=== PATIENT | male | born 1935 | race Native Hawaiian/Other Pacific Islander ===

== ENCOUNTER 2016-04-15 06:33 | Observation (INO) | payer OTHER ==
[~2016-04-15] VITALS: Ht 165.1 cm; Wt 68.7 kg
[2016-04-15 06:34] VITALS: BP 158/77; TEMP 98.2
[2016-04-15 06:57] LABS: PLATELET COUNT 228 K/uL (142-355)
[2016-04-15 07:12] LABS: POTASSIUM 3.6 mmol/L (3.6-5.2); SODIUM 130 mmol/L (136-145)
[2016-04-15 07:22] LABS: PARTIAL THROMBOPLASTIN TIME 28.4 SECONDS (24.5-33.6)
[2016-04-15 09:26] VITALS: BP 154/85; TEMP 98.2; Ht 165.1 cm; Wt 68.7 kg
[2016-04-15 11:45] VITALS: BP 141/77; TEMP 97.9
[2016-04-15] MEDS ORDERED: CARAFATE1 GM PO (13:35)
[2016-04-15] MEDS ORDERED: CLARITIN10 MG PO (13:35)
[2016-04-15] MEDS ORDERED: TRAM50TA PO (13:35)
[2016-04-15] MEDS ORDERED: DIOVAN HCT160 MG/25 PO (13:35)
[2016-04-15] MEDS ORDERED: NITROSTAT0.4 MG SL (13:36)
[2016-04-15] MEDS ORDERED: PLAVIX75 MG PO (13:36)
[2016-04-15] MEDS ORDERED: MECLIZINE25 MG PO (13:36)
[2016-04-15] MEDS ORDERED: RANITIDINE 150150 MG PO (13:37)
[2016-04-15 15:57] VITALS: BP 143/77; TEMP 98.1
[2016-04-15 19:59] VITALS: BP 127/68; TEMP 98.2
[2016-04-16] VITALS: BP 113/70; TEMP 98.4
[2016-04-16 04:00] VITALS: BP 114/67; TEMP 98.2
[2016-04-16 06:27] LABS: POTASSIUM 3.9 mmol/L (3.6-5.2); SODIUM 134 mmol/L (136-145)
[2016-04-16 08:00] VITALS: BP 123/76; TEMP 98.2
[2016-04-16 12:00] VITALS: BP 153/86; TEMP 97.7
--- NOTE | 2016-04-16 13:25 | NUR ---
1325 pt left with son via wc. no distress or problems noted
== END 2016-04-16 13:23 | disposition home or self-care (01) ==
LOC: ED 06:33 → MED/SURG 07:46
PROVIDERS: Emergency Medicine
DX: R07.89 Other chest pain (principal); K57.92 Diverticulitis of intestine, part unspecified, without perforation or abscess without bleeding; I25.2 Old myocardial infarction; R10.32 Left lower quadrant pain
CPT/HCPCS: 36415; 80053; 81000; 82150; 82550; 83690; 83735; 84484; 85027; 85610; 85730; 86318; 93005; 96372; 99220; 99283; 99284; G0378; J1650

== ENCOUNTER 2016-04-16 19:55 | Emergency (ER) | payer OTHER ==
[~2016-04-16] VITALS: Ht 165.1 cm; Wt 68.0 kg
[~2016-04-16 19:55] MED LIST: CARAFATE1 GM PO; CLARITIN10 MG PO; DIOVAN HCT160 MG/25 PO; MECLIZINE25 MG PO; NITROSTAT0.4 MG SL; PLAVIX75 MG PO; RANITIDINE 150150 MG PO; TRAM50TA PO
[2016-04-16 20:39] LABS: PLATELET COUNT 256 K/uL (142-355)
[2016-04-16 22:23] VITALS: BP 129/82; TEMP 98.2
== END 2016-04-16 22:29 | disposition home or self-care (01) ==
LOC: ED 19:55
DX: K57.92 Diverticulitis of intestine, part unspecified, without perforation or abscess without bleeding (principal)
CPT/HCPCS: 36415; 81000; 82150; 83690; 85027; 86318; 99283

== ENCOUNTER → 2016-10-10 09:46 | Outpatient (CLI) | payer OTHER | END | disposition home or self-care (01) | LOC: AMB 09:46 | DX: Z04.1 Encounter for examination and observation following transport accident (principal) ==

== ENCOUNTER 2016-11-17 07:53 | Outpatient (CLI) | payer OTHER ==
[2016-11-17 08:46] LABS: PLATELET COUNT 280 K/uL (142-355)
[2016-11-17 09:04] LABS: POTASSIUM 4.6 mmol/L (3.6-5.2); SODIUM 132 mmol/L (136-145)
== END 2016-11-17 09:00 | disposition home or self-care (01) ==
LOC: LABW 07:53
PROVIDERS: Internal Medicine Cardiovascular Disease
DX: E78.4 Other hyperlipidemia (principal); Z79.899 Other long term (current) drug therapy; Z51.81 Encounter for therapeutic drug level monitoring
CPT/HCPCS: 36415; 80048; 80061; 80076; 85027

== ENCOUNTER 2016-11-23 09:20 | Outpatient (CLI) | payer OTHER | END 2016-11-23 10:30 | disposition home or self-care (01) | LOC: US 09:20 | DX: I65.29 Occlusion and stenosis of unspecified carotid artery (principal) ==

== ENCOUNTER 2016-12-26 13:29 | Emergency (ER) | payer OTHER ==
[~2016-12-26] VITALS: Ht 165.1 cm; Wt 63.5 kg
[2016-12-26 13:40] VITALS: TEMP 97.9
[2016-12-26 14:36] VITALS: BP 102/86
== END 2016-12-26 14:39 | disposition home or self-care (01) ==
LOC: ED 13:29
DX: S30.0XXA Contusion of lower back and pelvis, initial encounter (principal); S70.02XA Contusion of left hip, initial encounter; S70.01XA Contusion of right hip, initial encounter; M47.896 Other spondylosis, lumbar region; Z87.81 Personal history of (healed) traumatic fracture; W01.0XXA Fall on same level from slipping, tripping and stumbling without subsequent striking against object, initial encounter; Y92.098 Other place in other non-institutional residence as the place of occurrence of the external cause
CPT/HCPCS: 99283; J1885

== ENCOUNTER 2017-01-04 11:16 | Inpatient (IN) | payer OTHER ==
[~2017-01-04] VITALS: Ht 165.1 cm; Wt 65.8 kg
[2017-01-04] VITALS (7 sets, daily range): BP systolic 121–152; BP diastolic 68–98; TEMP 97.7–98.1; Ht 165.1 cm; Wt 65.8 kg
[2017-01-05] VITALS (7 sets, daily range): BP systolic 110–141; BP diastolic 64–81; TEMP 98–99.3
[2017-01-05 06:01] LABS: POTASSIUM 3.2 mmol/L (3.6-5.2); SODIUM 131 mmol/L (136-145)
[2017-01-05 06:37] LABS: PLATELET COUNT 300 K/uL (142-355)
[2017-01-05] MEDS ORDERED: DIOVAN HC1 PO (09:06)
[2017-01-05] MEDS ORDERED: MIRALAX3350 N1 PO (09:06)
[2017-01-05] MEDS ORDERED: SIMV40TA57 (09:07)
[2017-01-05] MEDS ORDERED: METO50TA27 PO (09:08)
[2017-01-06 04:00] VITALS: BP 106/61; BP 110/60; TEMP 98.3; TEMP 98.7
[2017-01-06 08:00] VITALS: BP 127/65; TEMP 99.1
[2017-01-06 12:00] VITALS: BP 154/81; TEMP 98
[2017-01-06 16:00] VITALS: BP 157/78; TEMP 98
[2017-01-06 20:00] VITALS: BP 152/78; TEMP 97.9
[2017-01-07] VITALS: BP 108/60; TEMP 98.1
[2017-01-07 04:00] VITALS: BP 127/64; TEMP 98.4
[2017-01-07 08:00] VITALS: BP 118/66; TEMP 98.2
[2017-01-07 12:00] VITALS: BP 117/62; TEMP 98.3
[2017-01-07 16:00] VITALS: BP 130/70; TEMP 98.4
[2017-01-07 20:00] VITALS: BP 133/72; TEMP 99.1
[2017-01-08] VITALS: BP 133/61; TEMP 98.6
[2017-01-08 04:00] VITALS: BP 112/60; TEMP 98.1
[2017-01-08 08:00] VITALS: BP 123/54; TEMP 98.2
[2017-01-08 12:00] VITALS: BP 112/54; TEMP 97.7
[2017-01-08 16:00] VITALS: BP 130/68; TEMP 98.5
[2017-01-08 20:10] VITALS: BP 133/69; TEMP 98.9
[2017-01-09] VITALS: BP 138/60; TEMP 99
[2017-01-09 04:00] VITALS: BP 121/63; TEMP 98.1
[2017-01-09 07:58] VITALS: BP 144/73; TEMP 97.8
[2017-01-09 12:00] VITALS: BP 118/67; TEMP 97.8
[2017-01-09 16:00] VITALS: BP 142/78; TEMP 98.3
[2017-01-09 20:00] VITALS: BP 143/65; TEMP 97.7
[2017-01-10] VITALS: BP 130/66; TEMP 98.4
[2017-01-10 04:00] VITALS: BP 129/62; TEMP 97.9
[2017-01-10 08:00] VITALS: BP 119/58; TEMP 98.1
[2017-01-10 12:00] VITALS: BP 124/82; TEMP 98.8
== END 2017-01-10 14:16 | disposition short-term general hospital (02) | DRG 552 ==
LOC: ED 11:16 → MED/SURG 14:35
PROVIDERS: Internal Medicine; ADMIT Family Medicine
DX: S32.028A Other fracture of second lumbar vertebra, initial encounter for closed fracture (principal); S22.088A Other fracture of T11-T12 vertebra, initial encounter for closed fracture; W19.XXXA Unspecified fall, initial encounter; Y93.89 Activity, other specified; Y92.128 Other place in nursing home as the place of occurrence of the external cause; I10 Essential (primary) hypertension; K21.9 Gastro-esophageal reflux disease without esophagitis; E78.00 Pure hypercholesterolemia, unspecified; Z86.73 Personal history of transient ischemic attack (TIA), and cerebral infarction without residual deficits; I25.10 Atherosclerotic heart disease of native coronary artery without angina pectoris; M15.8 Other polyosteoarthritis
CPT/HCPCS: 36415; 80053; 81000; 83735; 85027; 96365; 96366; 96375; 99284; J1885; J2930

== ENCOUNTER 2017-01-12 16:12 | Inpatient (IN) | payer OTHER ==
[~2017-01-12] VITALS: Ht 165.1 cm; Wt 61.7 kg
[~2017-01-12 16:12] MED LIST changes: +DIOVAN HC1 PO; +METO50TA27 PO; +MIRALAX3350 N1 PO; +SIMV40TA57
[2017-01-12 19:47] VITALS: BP 144/83; TEMP 98.4; Ht 165.1 cm; Wt 61.7 kg
[2017-01-13 08:00] VITALS: BP 104/79; TEMP 98
[2017-01-13 20:06] VITALS: BP 96/50; TEMP 98.7
[2017-01-13 20:07] VITALS: BP 96/50; TEMP 98.7
[2017-01-14 07:30] VITALS: BP 108/63; TEMP 98.1
[2017-01-14 20:00] VITALS: BP 120/72; TEMP 97.8
[2017-01-15 08:00] VITALS: BP 139/82; TEMP 98.6
[2017-01-15 20:00] VITALS: BP 102/65; TEMP 98.2
[2017-01-16 08:00] VITALS: BP 130/67; TEMP 98.4
[2017-01-16 22:00] VITALS: BP 127/80; TEMP 98.6
[2017-01-17 08:00] VITALS: BP 108/62; TEMP 98.6
[2017-01-17 20:00] VITALS: BP 116/62; TEMP 98.8
[2017-01-18 04:43] LABS: PLATELET COUNT 255 K/uL (142-355)
[2017-01-18 05:34] LABS: POTASSIUM 3.5 mmol/L (3.6-5.2); SODIUM 130 mmol/L (136-145)
[2017-01-18 08:00] VITALS: BP 103/72; TEMP 98.3
[2017-01-18 20:24] VITALS: BP 104/59; TEMP 98.5
[2017-01-19 08:00] VITALS: BP 119/74; TEMP 97.6
[2017-01-19 20:00] VITALS: BP 114/73; TEMP 98.4
[2017-01-20 08:00] VITALS: BP 125/72; TEMP 98
[2017-01-20 20:00] VITALS: BP 109/66; TEMP 98.6
[2017-01-21 08:00] VITALS: BP 100/66; TEMP 98.3
[2017-01-21 20:00] VITALS: BP 118/76; TEMP 98.2
[2017-01-22 08:00] VITALS: BP 116/77; TEMP 98.2
[2017-01-22 19:42] VITALS: BP 108/71; TEMP 98.7
[2017-01-23 08:00] VITALS: BP 132/76; TEMP 98
[2017-01-23 19:32] VITALS: BP 117/78; TEMP 98.1
[2017-01-24 08:00] VITALS: BP 115/70; TEMP 97.8
[2017-01-25] MEDS ORDERED: TRAM50TA PO (14:44)
[2017-01-25] MEDS ORDERED: LODRANE D1 CAP OR (14:46)
[2017-01-25] MEDS ORDERED: PREDNISONE5 M1 OR (14:48)
== END 2017-01-24 12:06 | disposition home health service (06) | DRG 556 ==
LOC: MED/SURG 16:12
PROVIDERS: ADMIT Internal Medicine
DX: M62.81 Muscle weakness (generalized) (principal); Z47.89 Encounter for other orthopedic aftercare; R26.81 Unsteadiness on feet; I10 Essential (primary) hypertension; I25.10 Atherosclerotic heart disease of native coronary artery without angina pectoris; K21.9 Gastro-esophageal reflux disease without esophagitis
CPT/HCPCS: 80053; 85027

== ENCOUNTER 2017-01-25 14:20 | Emergency (ER) | payer OTHER ==
[~2017-01-25] VITALS: Ht 165.1 cm; Wt 63.5 kg
[2017-01-25 14:29] VITALS: TEMP 97.7
[2017-01-25] MEDS ORDERED: TRAM50TA PO (14:44)
[2017-01-25] MEDS ORDERED: LODRANE D1 CAP OR (14:46)
[2017-01-25] MEDS ORDERED: PREDNISONE5 M1 OR (14:48)
[2017-01-25 17:04] VITALS: BP 116/68
== END 2017-01-25 17:07 | disposition home or self-care (01) ==
LOC: ED 14:20
DX: M25.552 Pain in left hip (principal); M25.551 Pain in right hip; M16.0 Bilateral primary osteoarthritis of hip
CPT/HCPCS: 99282

== ENCOUNTER 2017-02-22 08:07 | Emergency (ER) | payer OTHER ==
[~2017-02-22] VITALS: Ht 165.1 cm; Wt 49.9 kg
[~2017-02-22 08:07] MED LIST changes: +LODRANE D1 CAP OR; +PREDNISONE5 M1 OR
[2017-02-22 09:15] VITALS: TEMP 97.9
[2017-02-22 10:00] VITALS: BP 142/78
== END 2017-02-22 10:05 | disposition home or self-care (01) ==
LOC: ED 08:07
DX: S29.012A Strain of muscle and tendon of back wall of thorax, initial encounter (principal); G89.29 Other chronic pain; W06.XXXA Fall from bed, initial encounter; Y93.89 Activity, other specified; Y92.098 Other place in other non-institutional residence as the place of occurrence of the external cause
CPT/HCPCS: 96372; 99283; J1020; J1100

== ENCOUNTER 2017-02-23 10:13 | Emergency (ER) | payer OTHER ==
[~2017-02-23] VITALS: Ht 165.1 cm; Wt 49.9 kg
[2017-02-23 10:49] LABS: PLATELET COUNT 316 K/uL (142-355)
[2017-02-23 10:56] LABS: POTASSIUM 3.9 mmol/L (3.6-5.2)
[2017-02-23 14:12] VITALS: BP 124/71; TEMP 97.6
== END 2017-02-23 14:12 | disposition home or self-care (01) ==
LOC: ED 10:13
PROVIDERS: Emergency Medicine
DX: F03.90 Unspecified dementia, unspecified severity, without behavioral disturbance, psychotic disturbance, mood disturbance, and anxiety (principal)
CPT/HCPCS: 36415; 80053; 81000; 85027; 99283

== ENCOUNTER 2017-03-30 08:07 | Outpatient (CLI) | payer OTHER | END 2017-03-30 09:10 | disposition home or self-care (01) | LOC: MRI 08:07 | DX: R41.82 Altered mental status, unspecified (principal) ==

== ENCOUNTER 2017-04-01 16:12 | Emergency (ER) | payer OTHER ==
[~2017-04-01] VITALS: Ht 162.6 cm; Wt 49.9 kg
[2017-04-01 18:03] LABS: PLATELET COUNT 296 K/uL (142-355)
[2017-04-01 18:21] LABS: PARTIAL THROMBOPLASTIN TIME 27.4 SECONDS (24.5-33.6)
[2017-04-01 18:30] LABS: POTASSIUM 3.2 mmol/L (3.6-5.2); SODIUM 133 mmol/L (136-145)
[2017-04-01 20:20] VITALS: TEMP 98.4
[2017-04-01 20:45] VITALS: BP 156/97
== END 2017-04-01 21:00 | disposition short-term general hospital (02) ==
LOC: ED 16:12
PROVIDERS: Specialist
DX: R07.89 Other chest pain (principal); R00.0 Tachycardia, unspecified
CPT/HCPCS: 36415; 80053; 82550; 84484; 85027; 85610; 85730; 93005; 96372; 96374; 96375; 99284; J1644; J2270; J2405

== ENCOUNTER 2017-04-01 20:43 | Outpatient (CLI) | payer OTHER | END 2017-04-01 21:52 | disposition short-term general hospital (02) | LOC: AMB 20:43 | DX: R07.89 Other chest pain (principal); R00.0 Tachycardia, unspecified | CPT/HCPCS: A0425; A0427 ==

== ENCOUNTER 2017-04-21 01:40 | Observation (INO) | payer OTHER ==
[~2017-04-21] VITALS: Ht 165.1 cm; Wt 61.3 kg
[2017-04-21 02:03] VITALS: BP 146/76; TEMP 97.8
[2017-04-21 02:35] LABS: PLATELET COUNT 257 K/uL (142-355)
[2017-04-21 02:46] LABS: POTASSIUM 3.8 mmol/L (3.6-5.2); SODIUM 130 mmol/L (136-145)
[2017-04-21 03:17] LABS: PARTIAL THROMBOPLASTIN TIME 27.9 SECONDS (24.5-33.6)
[2017-04-21 04:50] VITALS: BP 148/73; TEMP 97.4; Ht 165.1 cm; Wt 61.3 kg
--- NOTE | 2017-04-21 05:08 | NUR ---
0420 ARRIVED TO ROOM VIA W/C FROM ER, AWAKE, ALERT & ORIENTED. SON AT BEDSIDE & ANSWERED QUESTIONS, ORIENTED PT & SON TO ROOM, BED ALARM SET. TELEMETRY IN PLACE & PT INSTRUCTED NOT TO GET OOB WITHOUT ASSISTANCE.
[2017-04-21 08:00] VITALS: BP 134/68; TEMP 98
[2017-04-21 12:00] VITALS: BP 160/90; TEMP 98.3
[2017-04-21 16:00] VITALS: BP 129/71; TEMP 99.4
[2017-04-21 20:00] VITALS: BP 144/87; TEMP 98.3
[2017-04-22] VITALS: BP 109/67; TEMP 98.5
[2017-04-22 04:00] VITALS: BP 134/79; TEMP 98.7
[2017-04-22 07:21] LABS: PLATELET COUNT 257 K/uL (142-355)
[2017-04-22 07:55] LABS: POTASSIUM 3.8 mmol/L (3.6-5.2); SODIUM 132 mmol/L (136-145)
[2017-04-22 08:00] VITALS: BP 137/79; TEMP 98.9
--- NOTE | 2017-04-22 12:25 | NUR ---
1230 DISCHARGE INSTRUCTIONS GIVEN AND EXPLAINED TO PT. PT TO FOLLOW UP WITH DR SCHAFFER . INCREASE SODIUM INTACT. WILL SPEAK TO SON WHEN HE ARRIVES TO TAKE PT HOME
--- NOTE | 2017-04-22 12:27 | NUR ---
9012 SON HERE TO TAKE PT HOME EXPLAINED TO SON TO FOLLOW UP WITH DR SCHAFFER. BOTHJ VERBALIZED UNDERSTANDING
--- NOTE | 2017-04-24 16:30 | NUR ---
PATIENT WAS EXPOSED TO A STAFF MEMBER ON Sunday04-21-17 THAT TESTED POSITIVE FOR INFLUENZA A ON SUNDAY. I NOTIFIED THE PATIENT AND HIS GRANDDAUGHTER, ANUP. I CALLED IN RX FOR TAMIFLU 75 MG PO DAILY X 7 DAYS. THIS IS FOR PROPHALASIS. I ADVISED ANUP TO HAVE HIM START MEDICATION TODAY. SHE EXPRESSED UNDERSTANDING. PATIENT'S GFR IS >60.
== END 2017-04-22 12:35 | disposition home or self-care (01) ==
LOC: ED 01:40 → MED/SURG 03:34
DX: R07.89 Other chest pain (principal); I25.2 Old myocardial infarction
CPT/HCPCS: 36415; 36591; 80053; 82550; 82553; 84484; 85027; 85610; 85730; 93005; 94760; 96365; 96366; 96374; 99220; 99284; G0378; J1650; J2270

== ENCOUNTER 2017-05-07 10:45 | Emergency (ER) | payer OTHER ==
[~2017-05-07] VITALS: Ht 165.1 cm; Wt 63.5 kg
[2017-05-07 11:17] LABS: PLATELET COUNT 268 K/uL (142-355)
[2017-05-07 11:23] LABS: POTASSIUM 3.2 mmol/L (3.6-5.2)
[2017-05-07 13:05] VITALS: BP 115/62; TEMP 97.7
== END 2017-05-07 13:05 | disposition home or self-care (01) ==
LOC: ED 10:45
PROVIDERS: Family Medicine
DX: R07.89 Other chest pain (principal); R06.02 Shortness of breath
CPT/HCPCS: 80053; 82550; 83880; 84484; 85027; 93005; 99284

== ENCOUNTER 2019-01-06 11:36 | Outpatient (CLI) | payer OTHER | END 2019-01-06 11:49 | disposition short-term general hospital (02) | LOC: AMB 11:36 | DX: R07.89 Other chest pain (principal); I10 Essential (primary) hypertension | CPT/HCPCS: A0425; A0427 ==

== ENCOUNTER 2019-01-06 11:50 | Inpatient (IN) | payer OTHER ==
[~2019-01-06] VITALS: Ht 165.1 cm; Wt 62.9 kg
[2019-01-06] VITALS: BP 135/69; TEMP 97.7
[2019-01-06 11:50] VITALS: BP 98/62; TEMP 97.7
[2019-01-06 12:36] LABS: PLATELET COUNT 376 K/uL (142-355)
[2019-01-06 12:53] LABS: POTASSIUM 3.5 mmol/L (3.6-5.2)
[2019-01-06 16:00] VITALS: BP 135/72; TEMP 97.5
[2019-01-06 17:30] VITALS: BP 135/72; TEMP 97.5
[2019-01-06 18:00] VITALS: BP 135/72; TEMP 97.5
[2019-01-06 20:00] VITALS: BP 113/58; TEMP 98
[2019-01-07 03:29] LABS: PLATELET COUNT 227 K/uL (142-355)
[2019-01-07 03:43] LABS: POTASSIUM 2.9 mmol/L (3.6-5.2)
[2019-01-07 04:00] VITALS: BP 177/63; TEMP 97.6
[2019-01-07 08:00] VITALS: BP 124/70; TEMP 97.8
[2019-01-07 12:00] VITALS: BP 126/74; TEMP 98.3
== END 2019-01-07 16:20 | disposition short-term general hospital (02) | DRG 280 ==
LOC: ED 12:01 → MED/SURG 13:20
PROVIDERS: Internal Medicine; ADMIT Emergency Medicine
DX: I21.29 ST elevation (STEMI) myocardial infarction involving other sites (principal); A41.89 Other specified sepsis; J18.8 Other pneumonia, unspecified organism; I25.10 Atherosclerotic heart disease of native coronary artery without angina pectoris; E83.42 Hypomagnesemia; I25.2 Old myocardial infarction; E87.6 Hypokalemia; Z86.73 Personal history of transient ischemic attack (TIA), and cerebral infarction without residual deficits
CPT/HCPCS: 80053; 82150; 82550; 83036; 83605; 83690; 83735; 83880; 84484; 85027; 87040; 93005; 94640; 94664; 94760; 96360; 96365; 96366; 99284; J0456; J1956; J3475

== ENCOUNTER 2019-01-07 16:25 | Outpatient (CLI) | payer OTHER | END 2019-01-07 17:42 | disposition short-term general hospital (02) | LOC: AMB 16:25 | DX: I21.29 ST elevation (STEMI) myocardial infarction involving other sites (principal); A41.89 Other specified sepsis | CPT/HCPCS: A0425; A0429 ==

== ENCOUNTER 2019-04-20 10:53 | Observation (INO) | payer OTHER ==
[~2019-04-20] VITALS: Ht 165.1 cm; Wt 59.2 kg
[2019-04-20 10:53] VITALS: BP 164/79; TEMP 97.9
[2019-04-20 11:15] LABS: PLATELET COUNT 251 K/uL (142-355)
[2019-04-20 11:25] LABS: POTASSIUM 3.7 mmol/L (3.6-5.2); SODIUM 134 mmol/L (136-145)
[2019-04-20 11:42] VITALS: BP 125/71
[2019-04-20 11:42] LABS: PARTIAL THROMBOPLASTIN TIME 28.7 SECONDS (24.5-33.6)
[2019-04-20 12:19] VITALS: BP 129/81
[2019-04-20 16:00] VITALS: BP 153/81; TEMP 98.2
[2019-04-20 18:26] VITALS: BP 151/73; TEMP 98.9; Ht 165.1 cm; Wt 59.2 kg
[2019-04-20 20:00] VITALS: BP 135/88; TEMP 99.1
[2019-04-21] VITALS: BP 143/99; TEMP 98.6
[2019-04-21 03:54] VITALS: BP 159/78; TEMP 97.8
[2019-04-21 08:00] VITALS: BP 152/80; TEMP 97.9
[2019-04-21 12:00] VITALS: BP 151/84; TEMP 97.6
== END 2019-04-21 12:10 | disposition home or self-care (01) ==
LOC: ED 10:53 → MED/SURG 12:00
PROVIDERS: ADMIT Hospitalist
DX: R07.89 Other chest pain (principal); R06.02 Shortness of breath; I25.10 Atherosclerotic heart disease of native coronary artery without angina pectoris; I25.2 Old myocardial infarction; Z86.73 Personal history of transient ischemic attack (TIA), and cerebral infarction without residual deficits
CPT/HCPCS: 36415; 80053; 82550; 83880; 84484; 85027; 85379; 85610; 85730; 93005; 96374; 99220; 99284; G0378; J1650; J1885; J2270

== ENCOUNTER 2019-10-27 10:46 | Emergency (ER) | payer OTHER ==
[~2019-10-27] VITALS: Ht 165.1 cm; Wt 59.0 kg
[2019-10-27 11:10] VITALS: BP 161/88; TEMP 98
[2019-10-27 11:48] LABS: PLATELET COUNT 207 K/uL (142-355)
[2019-10-27 11:54] LABS: POTASSIUM 2.7 mmol/L (3.6-5.2)
[2019-10-27] MEDS ORDERED: TYLENOL325 MG PO (15:39)
[2019-10-27] MEDS ORDERED: TUMS500 MG PO (15:40)
== END 2019-10-27 13:55 | disposition other institution (70) ==
LOC: ED 10:46
PROVIDERS: Family Medicine
DX: Z00.8 Encounter for other general examination (principal); F91.8 Other conduct disorders; Z79.899 Other long term (current) drug therapy; Z11.59 Encounter for screening for other viral diseases
CPT/HCPCS: 80053; 80307; 80320; 80329; 81000; 85027; 87635; 93005; 99285; G2023; U00003

== ENCOUNTER 2019-12-04 18:57 | Outpatient (CLI) | payer OTHER ==
[~2019-12-04 18:57] MED LIST changes: +CHOL100034 PO; +CLOP75TA2 PO; +CYAN10009 IM; +ESCI10TA PO; +RANI150T78 PO; +RISP0.25 PO; +SIMV40TA57 PO; +TUMS500 MG PO; +TYLENOL325 MG PO
== END 2019-12-04 21:14 | disposition home or self-care (01) ==
LOC: LAB 18:57
DX: I10 Essential (primary) hypertension (principal); Z79.899 Other long term (current) drug therapy
CPT/HCPCS: 83036; 84153

== ENCOUNTER 2020-06-30 14:56 | Inpatient (IN) | payer OTHER | END 2020-07-15 12:22 | disposition still patient (30) | LOC: PAVC 14:56 | PROVIDERS: ADMIT Internal Medicine; ATTEND Internal Medicine ==

== ENCOUNTER 2020-07-01 08:44 | Outpatient (CLI) | payer OTHER ==
[2020-07-01 10:02] LABS: PLATELET COUNT 190 K/uL (142-355)
[2020-07-01 10:41] LABS: POTASSIUM 3.2 mmol/L (3.6-5.2)
== END 2020-07-01 21:47 | disposition home or self-care (01) ==
LOC: LAB 08:44
PROVIDERS: ATTEND Internal Medicine
DX: G30.1 Alzheimer's disease with late onset (principal); Z79.899 Other long term (current) drug therapy; R79.89 Other specified abnormal findings of blood chemistry
CPT/HCPCS: 80053; 80061; 82306; 82607; 82728; 83036; 83540; 84153; 84443; 85027; 87081

== ENCOUNTER 2020-07-15 13:46 | Inpatient (IN) | payer OTHER | END 2020-08-14 11:25 | disposition still patient (30) | LOC: PAVC 13:46 | PROVIDERS: ADMIT Internal Medicine; ATTEND Internal Medicine ==

== ENCOUNTER 2020-07-29 14:40 | Outpatient (CLI) | payer OTHER | END 2020-07-29 22:02 | disposition home or self-care (01) | LOC: INF 14:40 | PROVIDERS: ATTEND Internal Medicine | DX: Z23 Encounter for immunization (principal) | CPT/HCPCS: 96372 ==

== ENCOUNTER 2020-08-14 11:43 | Inpatient (IN) | payer OTHER | END 2020-09-14 15:44 | disposition still patient (30) | LOC: PAVC 11:43 | PROVIDERS: ADMIT Internal Medicine; ATTEND Internal Medicine ==

== ENCOUNTER 2020-08-19 08:31 | Outpatient (CLI) | payer OTHER | END 2020-08-19 20:24 | disposition home or self-care (01) | LOC: INF 08:31 | PROVIDERS: ATTEND Internal Medicine | DX: Z23 Encounter for immunization (principal) | CPT/HCPCS: 96372 ==

== ENCOUNTER 2020-09-01 08:42 | Outpatient (CLI) | payer OTHER | END 2020-09-01 21:27 | disposition home or self-care (01) | LOC: LAB 08:42 | PROVIDERS: ATTEND Internal Medicine | DX: D51.8 Other vitamin B12 deficiency anemias (principal) | CPT/HCPCS: 82607 ==

== ENCOUNTER 2020-09-14 16:42 | Inpatient (IN) | payer OTHER | END 2020-10-14 08:00 | disposition still patient (30) | LOC: PAVC 16:42 | PROVIDERS: ADMIT Internal Medicine; ATTEND Internal Medicine ==

== ENCOUNTER 2020-10-14 09:00 | Inpatient (IN) | payer OTHER | END 2020-11-14 08:00 | disposition still patient (30) | LOC: PAVC 09:00 | PROVIDERS: ADMIT Internal Medicine; ATTEND Internal Medicine ==

== ENCOUNTER 2020-11-14 09:00 | Inpatient (IN) | payer OTHER | END 2020-12-15 13:50 | disposition still patient (30) | LOC: PAVC 09:00 | PROVIDERS: ADMIT Internal Medicine; ATTEND Internal Medicine ==

== ENCOUNTER 2020-11-15 09:02 | Outpatient (CLI) | payer OTHER | END 2020-11-15 22:37 | disposition home or self-care (01) | LOC: LAB 09:02 | PROVIDERS: ATTEND Internal Medicine | DX: K21.9 Gastro-esophageal reflux disease without esophagitis (principal) | CPT/HCPCS: 82565; 84520 ==

== ENCOUNTER 2020-11-16 10:42 | Outpatient (CLI) | payer OTHER | END 2020-11-16 19:20 | disposition home or self-care (01) | LOC: CT 10:42 | PROVIDERS: ATTEND Internal Medicine | DX: M50.123 Cervical disc disorder at C6-C7 level with radiculopathy (principal); M25.78 Osteophyte, vertebrae | CPT/HCPCS: Q9963 ==

== ENCOUNTER 2020-11-18 09:59 | Outpatient (CLI) | payer OTHER | END 2020-11-18 20:26 | disposition home or self-care (01) | LOC: US 09:59 | PROVIDERS: ATTEND Internal Medicine | DX: I65.23 Occlusion and stenosis of bilateral carotid arteries (principal) ==

== ENCOUNTER 2020-11-22 07:53 | Outpatient (CLI) | payer OTHER | END 2020-11-22 21:41 | disposition home or self-care (01) | LOC: CT 07:53 | PROVIDERS: ATTEND Internal Medicine | DX: I65.23 Occlusion and stenosis of bilateral carotid arteries (principal) | CPT/HCPCS: Q9963 ==

== ENCOUNTER 2020-12-15 04:51 | Outpatient (CLI) | payer OTHER ==
[2020-12-15 05:32] LABS: PLATELET COUNT 211 K/uL (142-355)
[2020-12-15 05:58] LABS: POTASSIUM 4.1 mmol/L (3.6-5.2)
== END 2020-12-15 23:00 | disposition home or self-care (01) ==
LOC: LAB 04:51
PROVIDERS: ATTEND Internal Medicine
DX: D51.8 Other vitamin B12 deficiency anemias (principal); E78.49 Other hyperlipidemia
CPT/HCPCS: 80053; 80061; 82306; 85027

== ENCOUNTER 2020-12-15 14:06 | Inpatient (IN) | payer OTHER | END 2021-01-14 09:39 | disposition still patient (30) | LOC: PAVC 14:06 | PROVIDERS: ADMIT Internal Medicine; ATTEND Internal Medicine ==

== ENCOUNTER 2020-12-17 11:20 | Emergency (ER) | payer OTHER ==
[~2020-12-17] VITALS: Ht 160 cm; Wt 61.9 kg
[2020-12-17 11:58] LABS: PLATELET COUNT 204 K/uL (142-355)
[2020-12-17 12:06] LABS: SODIUM 132 mmol/L (136-145)
[2020-12-17 16:00] VITALS: BP 105/72
== END 2020-12-17 16:23 ==
LOC: ED 11:20
PROVIDERS: Emergency Medicine Emergency Medical Services
DX: E87.1 Hypo-osmolality and hyponatremia (principal); Z20.822 Contact with and (suspected) exposure to COVID-19
CPT/HCPCS: 36415; 80053; 81000; 84484; 85027; 87635; 96360; 96361; 99284; U0003

== ENCOUNTER 2020-12-31 09:56 | Outpatient (CLI) | payer OTHER | END 2020-12-31 19:18 | disposition home or self-care (01) | LOC: RESP 09:56 | PROVIDERS: ATTEND Internal Medicine | DX: I25.2 Old myocardial infarction (principal) | CPT/HCPCS: 93005 ==

== ENCOUNTER 2021-03-07 07:15 | Outpatient (CLI) | payer OTHER | END 2021-03-07 19:32 | disposition home or self-care (01) | LOC: INF 07:15 → LAB 07:15 | PROVIDERS: ATTEND Internal Medicine | DX: D51.8 Other vitamin B12 deficiency anemias (principal) | CPT/HCPCS: 82607 ==

== ENCOUNTER 2021-03-16 12:42 | Inpatient (IN) | payer OTHER | END 2021-04-16 09:08 | disposition still patient (30) | LOC: PAVC 12:42 | PROVIDERS: ADMIT Internal Medicine; ATTEND Internal Medicine ==

== ENCOUNTER 2021-04-16 09:31 | Inpatient (IN) | payer OTHER | END 2021-05-17 08:58 | disposition still patient (30) | LOC: PAVC 09:31 | PROVIDERS: ADMIT Internal Medicine; ATTEND Internal Medicine ==

== ENCOUNTER 2021-05-17 07:44 | Outpatient (CLI) | payer OTHER ==
[2021-05-17 08:51] LABS: PLATELET COUNT 205 K/uL (142-355)
[2021-05-17 09:12] LABS: POTASSIUM 4.3 mmol/L (3.6-5.2)
== END 2021-05-17 19:22 | disposition home or self-care (01) ==
LOC: LAB 07:44
PROVIDERS: ATTEND Internal Medicine
DX: E55.9 Vitamin D deficiency, unspecified (principal); E78.49 Other hyperlipidemia
CPT/HCPCS: 80053; 80061; 82306; 82607; 85027

== ENCOUNTER 2021-05-17 13:09 | Inpatient (IN) | payer OTHER | END 2021-06-14 09:09 | disposition still patient (30) | LOC: PAVC 13:09 | PROVIDERS: ADMIT Internal Medicine; ATTEND Internal Medicine ==

== ENCOUNTER 2021-06-14 14:10 | Inpatient (IN) | payer OTHER | END 2021-07-15 14:14 | disposition still patient (30) | LOC: PAVC 14:10 | PROVIDERS: ADMIT Internal Medicine; ATTEND Internal Medicine ==

== ENCOUNTER 2021-07-15 15:26 | Inpatient (IN) | payer OTHER | END 2021-08-14 10:39 | disposition still patient (30) | LOC: PAVC 15:26 | PROVIDERS: ADMIT Internal Medicine; ATTEND Internal Medicine ==

== ENCOUNTER 2021-08-14 02:31 | Inpatient (IN) | payer OTHER | END 2021-09-14 10:00 | disposition still patient (30) | LOC: PAVC 02:31 | PROVIDERS: ADMIT Internal Medicine; ATTEND Internal Medicine ==

== ENCOUNTER 2021-09-14 16:08 | Inpatient (IN) | payer OTHER | END 2021-10-14 09:16 | disposition still patient (30) | LOC: PAVC 16:08 | PROVIDERS: ADMIT Internal Medicine; ATTEND Internal Medicine ==

== ENCOUNTER 2021-10-14 13:03 | Inpatient (IN) | payer OTHER | END 2021-11-14 09:10 | disposition still patient (30) | LOC: PAVC 13:03 | PROVIDERS: ADMIT Internal Medicine; ATTEND Internal Medicine ==

== ENCOUNTER 2021-11-14 08:08 | Outpatient (CLI) | payer OTHER ==
[2021-11-14 08:54] LABS: PLATELET COUNT 203 K/uL (142-355)
[2021-11-14 09:01] LABS: POTASSIUM 4.3 mmol/L (3.6-5.2)
== END 2021-11-14 18:55 | disposition home or self-care (01) ==
LOC: LAB 08:08
PROVIDERS: ATTEND Internal Medicine
DX: D51.8 Other vitamin B12 deficiency anemias (principal); E55.9 Vitamin D deficiency, unspecified; I10 Essential (primary) hypertension
CPT/HCPCS: 80053; 80061; 82306; 82607; 85027

== ENCOUNTER 2021-11-14 10:16 | Inpatient (IN) | payer OTHER | END 2021-12-15 09:13 | disposition still patient (30) | LOC: PAVC 10:16 | PROVIDERS: ADMIT Internal Medicine; ATTEND Internal Medicine ==

== ENCOUNTER 2021-11-16 08:37 | Outpatient (CLI) | payer OTHER | END 2021-11-16 18:52 | disposition home or self-care (01) | LOC: CT 08:37 | PROVIDERS: ATTEND Internal Medicine | DX: I65.23 Occlusion and stenosis of bilateral carotid arteries (principal) | CPT/HCPCS: Q9963 ==

== ENCOUNTER 2021-12-15 14:54 | Inpatient (IN) | payer OTHER | END 2022-01-14 10:38 | disposition still patient (30) | LOC: PAVC 14:54 | PROVIDERS: ADMIT Internal Medicine Endocrinology, Diabetes & Metabolism; ATTEND Internal Medicine Endocrinology, Diabetes & Metabolism ==

== ENCOUNTER 2022-01-14 14:08 | Inpatient (IN) | payer OTHER | END 2022-02-14 12:14 | disposition still patient (30) | LOC: PAVC 14:08 | PROVIDERS: ADMIT Internal Medicine Endocrinology, Diabetes & Metabolism; ATTEND Internal Medicine Endocrinology, Diabetes & Metabolism ==

== ENCOUNTER 2022-02-14 14:07 | Inpatient (IN) | payer OTHER | END 2022-03-16 15:31 | disposition still patient (30) | LOC: PAVC 14:07 | PROVIDERS: ADMIT Internal Medicine Endocrinology, Diabetes & Metabolism; ATTEND Internal Medicine Endocrinology, Diabetes & Metabolism ==

== ENCOUNTER 2022-03-16 16:10 | Inpatient (IN) | payer OTHER | END 2022-04-16 10:50 | disposition still patient (30) | LOC: PAVC 16:10 | PROVIDERS: ADMIT Internal Medicine Endocrinology, Diabetes & Metabolism; ATTEND Internal Medicine Endocrinology, Diabetes & Metabolism ==

== ENCOUNTER 2022-04-16 14:18 | Inpatient (IN) | payer OTHER | END 2022-05-17 09:28 | disposition still patient (30) | LOC: PAVC 14:18 | PROVIDERS: ADMIT Internal Medicine Endocrinology, Diabetes & Metabolism; ATTEND Internal Medicine Endocrinology, Diabetes & Metabolism ==

== ENCOUNTER 2022-05-17 09:10 | Outpatient (CLI) | payer OTHER ==
[2022-05-17 09:30] LABS: PLATELET COUNT 224 K/uL (142-355)
[2022-05-17 10:06] LABS: POTASSIUM 4.4 mmol/L (3.6-5.2)
== END 2022-05-17 19:06 | disposition home or self-care (01) ==
LOC: LAB 09:10
PROVIDERS: ATTEND Internal Medicine Endocrinology, Diabetes & Metabolism
DX: D51.8 Other vitamin B12 deficiency anemias (principal); I10 Essential (primary) hypertension; E55.9 Vitamin D deficiency, unspecified; N40.0 Benign prostatic hyperplasia without lower urinary tract symptoms
CPT/HCPCS: 80053; 80061; 82306; 82607; 84153; 85027

== ENCOUNTER 2022-05-17 12:23 | Inpatient (IN) | payer OTHER | END 2022-06-14 15:20 | disposition still patient (30) | LOC: PAVC 12:23 | PROVIDERS: ADMIT Internal Medicine Endocrinology, Diabetes & Metabolism; ATTEND Internal Medicine Endocrinology, Diabetes & Metabolism ==

== ENCOUNTER 2022-06-14 16:09 | Inpatient (IN) | payer OTHER | END 2022-07-15 12:52 | disposition still patient (30) | LOC: PAVC 16:09 | PROVIDERS: ADMIT Internal Medicine Endocrinology, Diabetes & Metabolism; ATTEND Internal Medicine Endocrinology, Diabetes & Metabolism ==

== ENCOUNTER 2022-07-15 13:19 | Inpatient (IN) | payer OTHER | END 2022-08-14 16:42 | disposition still patient (30) | LOC: PAVC 13:19 | PROVIDERS: ADMIT Internal Medicine Endocrinology, Diabetes & Metabolism; ATTEND Internal Medicine Endocrinology, Diabetes & Metabolism ==

== ENCOUNTER 2022-08-14 17:34 | Inpatient (IN) | payer OTHER | END 2022-09-14 12:19 | disposition still patient (30) | LOC: PAVC 17:34 | PROVIDERS: ADMIT Internal Medicine Endocrinology, Diabetes & Metabolism; ATTEND Internal Medicine Endocrinology, Diabetes & Metabolism ==

== ENCOUNTER 2022-09-14 12:26 | Inpatient (IN) | payer OTHER | END 2022-10-14 17:42 | disposition still patient (30) | LOC: PAVC 12:26 | PROVIDERS: ADMIT Internal Medicine Endocrinology, Diabetes & Metabolism; ATTEND Internal Medicine Endocrinology, Diabetes & Metabolism ==

== ENCOUNTER 2022-11-14 05:52 | Outpatient (CLI) | payer OTHER ==
[2022-11-14 07:29] LABS: PLATELET COUNT 209 K/uL (142-355)
[2022-11-14 07:40] LABS: POTASSIUM 4.2 mmol/L (3.6-5.2)
== END 2022-11-14 19:29 | disposition home or self-care (01) ==
LOC: LAB 05:52
PROVIDERS: ATTEND Internal Medicine
DX: D51.8 Other vitamin B12 deficiency anemias (principal); E55.9 Vitamin D deficiency, unspecified; E78.49 Other hyperlipidemia
CPT/HCPCS: 36415; 80053; 80061; 82306; 82607; 85027